=== PATIENT | male | born 1955 | race Caucasian/White ===

== ENCOUNTER 2019-11-25 16:33 | Inpatient (IN) | payer MEDICARE ==
[~2019-11-25] VITALS: Ht 177.8 cm; Wt 92.3 kg
[2019-11-25 17:54] LABS: MEAN CORPUSCULAR HEMOGLOBIN 30.8 pg (27.5-34.5); MEAN CORPUSCULAR HGB CONC 32.2 g/dL (33.2-36.2); MEAN CORPUSCULAR VOLUME 95.7 fL (81-97); MEAN PLATELET VOLUME 9.2 fL (7.4-10.4); PLATELET COUNT 261 x10^3/uL (130-400); RED BLOOD COUNT 5.15 x10^6/uL (4.38-5.82); RED CELL DISTRIBUTION WIDTH 14.9 % (9.4-14.8)
[2019-11-25] MEDS ORDERED: CEFTRIAXONE PMX 1GM/50ML 50 ML ONE (17:54)
[2019-11-25] MEDS ORDERED: CEFTRIAXONE PMX 1GM/50ML 50 ML IVPB ONE (18:00)
[2019-11-25 18:03] LABS: ALANINE AMINOTRANSFERASE 43 U/L (12-78); CALCIUM 9.1 mg/dL (8.5-10.1); CHLORIDE 100 mmol/L (98-107); CREATININE 1.09 mg/dL (0.7-1.3)
[2019-11-25 18:08] LABS: ALKALINE PHOSPHATASE 132 U/L (45-117); BILIRUBIN,TOTAL 0.7 mg/dL (0.2-1.0)
[2019-11-25 18:15] LABS: BASOPHILS # (AUTO) 0.06 x10^3/uL (0-0.1); BASOPHILS % (AUTO) 0 % (0-1); EOSINOPHILS # (AUTO) 0.04 x10^3/uL (0-0.4); EOSINOPHILS % (AUTO) 0 % (1-7); LYMPHOCYTES # (AUTO) 1.93 x10^3/uL (1-3.4); LYMPHOCYTES % (AUTO) 12 % (22-44); MD SCAN; MONOCYTES # (AUTO) 1.13 x10^3/uL (0.2-0.8); MONOCYTES % (AUTO) 7 % (2-9); NEUTROPHILS # (AUTO) 13.48 x10^3/uL (1.8-6.8); NEUTROPHILS % (AUTO) 81 % (42-75)
[2019-11-25 18:19] LABS: ANION GAP 2 mmol/L (5-15)
--- NOTE | 2019-11-25 18:28 | NUR ---
BLOOD CX DRAWN- ABX INITIATED.
[2019-11-25] MEDS ORDERED: SODIUM CHLORIDE 0.9% 1,000ML IVBOLUS ONE (18:30)
--- NOTE | 2019-11-25 18:45 | NUR ---
HOLD IVF, IV ABX OK PER DR POLLARD.
--- NOTE | 2019-11-25 18:56 | NUR ---
REPORT GIVEN TO GWEN
--- NOTE | 2019-11-25 18:57 | NUR ---
report of pt from justin gunter and assuming care of pt at this time.
[2019-11-25] MEDS ORDERED: AZITHROMYCIN 500 MG in SODIUM CHLORIDE 0.9% 250 ML IVPB ONE (19:00)
[2019-11-25] MEDS ORDERED: SODIUM CHLORIDE FLUSH 10ML SYR IVF ONE (19:00)
--- NOTE | 2019-11-25 20:10 | NUR ---
XRAY AT AT THIS TIME.
--- NOTE | 2019-11-25 20:26 | NUR ---
PT BACK FROM CT AT THIS TIME. PT CONTINUES TO REMOVE MEDICAL EQUIPMENT AND REEDUCATED ON NEED TO MONITOR VS AT THIS TIME. PT STATES HE WILL BE COOPERATIVE GOING FORWARD.
[2019-11-25] MEDS ORDERED: OMNIPAQUE 350 MG/ML, 100ML BOTTLE ONE (20:28)
[2019-11-25] MEDS ORDERED: SODIUM CHLORIDE FLUSH 10ML SYR IVF PRN (20:30)
[2019-11-25] MEDS ORDERED: NITROGLYCERIN 0.4 MG BOTTLE (25 TABS) SL PRN (21:30)
[2019-11-25] MEDS ORDERED: ACETAMINOPHEN 325 MG TABLET PO PRN (21:30)
[2019-11-25] MEDS ORDERED: OXYcodone IR 5MG TABLET ONE (21:39)
[2019-11-25] MEDS ORDERED: NITROGLYCERIN SINGLE TAB 0.4 MG SL ONE (21:39)
[2019-11-25] MEDS: OXYcodone IR 5MG TABLET PO PRN (21:44)
--- NOTE | 2019-11-25 21:57 | NUR ---
PT MEDICATED PER MAR FOR PAIN. REPORT OF PT TO FELICIA BROWN AT THIS TIME. ALL QUESTIONS ANSWERED.
[2019-11-25 22:55] LABS: CHOL/HDL RATIO 3.3; CHOLESTEROL, TOTAL 138 mg/dL (140-239); HDL CHOL % 30 % (26-37); HDL CHOLESTEROL (DIRECT) 42 mg/dL (40-60); LDL CHOLESTEROL,CALCULATED 75 mg/dL (54-169); LDL/HDL RATIO 1.8 (0.5-3.0); TRIGLYCERIDES 103 mg/dL (50-200); VLDL CHOLESTEROL 21 mg/dL (0-25)
[2019-11-25] MEDS ORDERED: HEPARIN 5,000 UNITS/ML, 1ML IV ONE (23:00)
[2019-11-25] MEDS: HEPARIN 25,000 UNITS/250ML PMX 250 ML IV PRN (23:05)
[2019-11-26] MEDS: LABETALOL 5MG/ML, 20ML IVPush PRN (00:40)
[2019-11-26] MEDS: OXYcodone IR 5MG TABLET PO PRN ×2 (04:35→13:05)
[2019-11-26] MEDS: ASPIRIN 81 MG TABLET EC PO SCH (05:38)
[2019-11-26 05:58] LABS: MEAN CORPUSCULAR HEMOGLOBIN 30.7 pg (27.5-34.5); MEAN CORPUSCULAR HGB CONC 31.9 g/dL (33.2-36.2); MEAN PLATELET VOLUME 9.4 fL (7.4-10.4); PLATELET COUNT 223 x10^3/uL (130-400); RED BLOOD COUNT 4.99 x10^6/uL (4.38-5.82)
[2019-11-26 06:08] LABS: CHLORIDE 103 mmol/L (98-107)
[2019-11-26] MEDS: HEPARIN 5,000 UNITS/ML, 1ML IV PRN ×3 (06:20→21:15)
[2019-11-26 06:21] LABS: ANION GAP 2 mmol/L (5-15); CALCIUM 8.4 mg/dL (8.5-10.1); CREATININE 1.04 mg/dL (0.7-1.3)
[2019-11-26 06:38] LABS: MD YES
[2019-11-26 06:39] LABS: BAND#(MANUAL) 0.17 x10^3/uL; BANDS%(MANUAL) 1 % (0-7); EOS#(MANUAL) 0.17 x10^3/uL (0.0-0.4); EOS% (MANUAL) 1 % (1-7); LYMPH#(MANUAL) 1.85 x10^3/uL (1-3.4); LYMPHS% (MANUAL) 11 % (22-44); MONOS#(MANUAL) 2.18 x10^3/uL (0.3-2.7); MONOS% (MANUAL) 13 % (2-9); SEG#(MANUAL) 12.43 x10^3/uL (1.8-6.8); SEGS% (MANUAL) 74 % (42-75)
[2019-11-26 06:40] LABS: <PLATELET ESTIMATE> ADEQUATE; <PLT MORPHOLOGY> NORMAL PLT MORPH; <RBC MORPHOLOGY> NORMAL
[2019-11-26] MEDS ORDERED: ALBUTEROL/IPRATROPIUM 2.5MG/0.5MG, 3 ML ONE (09:50)
[2019-11-26] MEDS: ALBUTEROL/IPRATROPIUM 2.5MG/0.5MG, 3 ML NPPB SCH ×3 (09:53→19:46)
[2019-11-26] MEDS: CEFTRIAXONE PMX 1GM/50ML 50 ML IV SCH (11:00)
[2019-11-26] MEDS: LISINOPRIL 10 MG TABLET PO SCH ×2 (11:00→21:17)
[2019-11-26] MEDS: AZITHROMYCIN 500 MG in SODIUM CHLORIDE 0.9% 250 ML IV SCH (12:05)
[2019-11-26] MEDS: INSULIN LISPRO 100 UNITS/ML, PEN SQ-INSULIN SCH ×3 (12:36→21:24)
[2019-11-26] MEDS ORDERED: INSULIN GLARGINE 100 UNITS/ML, PEN SQ-INSULIN SCH (21:00)
[2019-11-26] MEDS: HEPARIN 25,000 UNITS/250ML PMX 250 ML IV PRN (21:16)
[2019-11-27 03:20] LABS: BASOPHILS # (AUTO) 0.18 x10^3/uL (0-0.1); BASOPHILS % (AUTO) 1 % (0-1); EOSINOPHILS # (AUTO) 0.13 x10^3/uL (0-0.4); EOSINOPHILS % (AUTO) 1 % (1-7); LYMPHOCYTES # (AUTO) 1.55 x10^3/uL (1-3.4); LYMPHOCYTES % (AUTO) 11 % (22-44); MD NO; MEAN CORPUSCULAR HEMOGLOBIN 30.6 pg (27.5-34.5); MEAN CORPUSCULAR HGB CONC 31.7 g/dL (33.2-36.2); MEAN CORPUSCULAR VOLUME 96.5 fL (81-97); MEAN PLATELET VOLUME 9.4 fL (7.4-10.4); MONOCYTES # (AUTO) 1.29 x10^3/uL (0.2-0.8); MONOCYTES % (AUTO) 9 % (2-9); NEUTROPHILS # (AUTO) 11.27 x10^3/uL (1.8-6.8); NEUTROPHILS % (AUTO) 78 % (42-75); PLATELET COUNT 223 x10^3/uL (130-400); RED BLOOD COUNT 4.68 x10^6/uL (4.38-5.82)
[2019-11-27 03:29] LABS: ANION GAP 1 mmol/L (5-15); CALCIUM 8.4 mg/dL (8.5-10.1); CHLORIDE 104 mmol/L (98-107); CREATININE 0.96 mg/dL (0.7-1.3)
[2019-11-27] MEDS: HEPARIN 5,000 UNITS/ML, 1ML IV PRN (05:11)
[2019-11-27] MEDS: INSULIN LISPRO 100 UNITS/ML, PEN SQ-INSULIN SCH ×4 (06:06→20:31)
[2019-11-27] MEDS: ASPIRIN 81 MG TABLET EC PO SCH (06:06)
[2019-11-27] MEDS: ALBUTEROL/IPRATROPIUM 2.5MG/0.5MG, 3 ML NPPB SCH ×4 (07:37→20:00)
[2019-11-27] MEDS ORDERED: LISINOPRIL 10 MG TABLET PO SCH (09:00)
[2019-11-27] MEDS: ENOXAPARIN 100 MG/ML SQ SCH ×2 (11:01→20:32)
[2019-11-27] MEDS: CEFTRIAXONE PMX 1GM/50ML 50 ML IV SCH (12:58)
[2019-11-27] MEDS: AZITHROMYCIN 500 MG in SODIUM CHLORIDE 0.9% 250 ML IV SCH (13:04)
[2019-11-27] MEDS: INSULIN GLARGINE 100 UNITS/ML, PEN SQ-INSULIN SCH (20:32)
[2019-11-27] MEDS: QUETIAPINE 25MG TABLET PO SCH (20:37)
[2019-11-27 21:08] LABS: CALCIUM 8.5 mg/dL (8.5-10.1); CREATININE 1.26 mg/dL (0.7-1.3)
[2019-11-27 21:17] LABS: ANION GAP 1 mmol/L (5-15); CHLORIDE 99 mmol/L (98-107)
[2019-11-27] MEDS ORDERED: TRAZODONE 100MG TABLET PO ONE (22:00)
[2019-11-28 04:29] LABS: ANION GAP 2 mmol/L (5-15); CALCIUM 8.3 mg/dL (8.5-10.1); CHLORIDE 102 mmol/L (98-107); CREATININE 1.12 mg/dL (0.7-1.3)
[2019-11-28 04:44] LABS: BASOPHILS # (AUTO) 0.13 x10^3/uL (0-0.1); BASOPHILS % (AUTO) 1 % (0-1); EOSINOPHILS # (AUTO) 0.07 x10^3/uL (0-0.4); EOSINOPHILS % (AUTO) 1 % (1-7); LYMPHOCYTES # (AUTO) 1.32 x10^3/uL (1-3.4); LYMPHOCYTES % (AUTO) 10 % (22-44); MD NO; MEAN CORPUSCULAR HEMOGLOBIN 30.7 pg (27.5-34.5); MEAN CORPUSCULAR HGB CONC 31.5 g/dL (33.2-36.2); MEAN CORPUSCULAR VOLUME 97.2 fL (81-97); MEAN PLATELET VOLUME 9.8 fL (7.4-10.4); MONOCYTES # (AUTO) 0.91 x10^3/uL (0.2-0.8); MONOCYTES % (AUTO) 7 % (2-9); NEUTROPHILS # (AUTO) 10.94 x10^3/uL (1.8-6.8); NEUTROPHILS % (AUTO) 82 % (42-75); PLATELET COUNT 283 x10^3/uL (130-400); RED BLOOD COUNT 4.64 x10^6/uL (4.38-5.82); RED CELL DISTRIBUTION WIDTH 14.8 % (9.4-14.8)
[2019-11-28] MEDS: ASPIRIN 81 MG TABLET EC PO SCH (06:13)
[2019-11-28] MEDS: INSULIN LISPRO 100 UNITS/ML, PEN SQ-INSULIN SCH ×4 (06:18→20:41)
[2019-11-28] MEDS: ENOXAPARIN 100 MG/ML SQ SCH ×2 (08:00→20:09)
[2019-11-28] MEDS: QUETIAPINE 25MG TABLET PO SCH (08:04)
[2019-11-28] MEDS: CEFTRIAXONE PMX 1GM/50ML 50 ML IV SCH (12:13)
[2019-11-28] MEDS: AZITHROMYCIN 500 MG in SODIUM CHLORIDE 0.9% 250 ML IV SCH (12:13)
[2019-11-28] MEDS ORDERED: ALBUTEROL/IPRATROPIUM 2.5MG/0.5MG, 3 ML NPPB PRN (15:30)
[2019-11-28 15:46] VITALS: BP 112/43
[2019-11-28] MEDS: OXYcodone IR 5MG TABLET PO PRN (16:18)
[2019-11-28 20:05] VITALS: BP 123/77
[2019-11-28] MEDS: INSULIN GLARGINE 100 UNITS/ML, PEN SQ-INSULIN SCH (20:41)
[2019-11-29 00:56] VITALS: BP 133/81
[2019-11-29] MEDS: ASPIRIN 81 MG TABLET EC PO SCH (06:12)
[2019-11-29 08:02] VITALS: BP 137/87
[2019-11-29] MEDS: INSULIN LISPRO 100 UNITS/ML, PEN SQ-INSULIN SCH ×4 (08:18→20:36)
[2019-11-29] MEDS: ENOXAPARIN 100 MG/ML SQ SCH (08:18)
[2019-11-29 09:38] LABS: CALCIUM 8.5 mg/dL (8.5-10.1); CHLORIDE 101 mmol/L (98-107); CREATININE 0.98 mg/dL (0.7-1.3)
[2019-11-29 09:47] LABS: ANION GAP 1 mmol/L (5-15)
[2019-11-29] MEDS ORDERED: SODIUM CHLORIDE 0.9% 1,000 ML IV SCH (11:00)
[2019-11-29] MEDS ORDERED: ACETAMINOPHEN 325 MG TABLET PO PRN (11:00)
[2019-11-29 12:34] LABS: O2 FLOW 15 L/min
[2019-11-29] MEDS ORDERED: OXYcodone IR 5MG TABLET PO PRN (13:30)
[2019-11-29] MEDS ORDERED: FUROSEMIDE 40 MG/4 ML IV ONE (14:30)
[2019-11-29] MEDS: INSULIN GLARGINE 100 UNITS/ML, PEN SQ-INSULIN SCH (20:37)
[2019-11-29] MEDS: APIXABAN 5 MG TABLET PO SCH (20:37)
[2019-11-30] MEDS: ASPIRIN 81 MG TABLET EC PO SCH (05:53)
[2019-11-30] MEDS: INSULIN LISPRO 100 UNITS/ML, PEN SQ-INSULIN SCH ×4 (07:00→19:59)
[2019-11-30] MEDS: APIXABAN 5 MG TABLET PO SCH ×2 (07:29→19:58)
[2019-11-30 13:17] VITALS: BP 125/81
[2019-11-30 13:41] VITALS: BP 121/62
[2019-11-30 18:52] VITALS: BP 114/74
[2019-11-30] MEDS: INSULIN GLARGINE 100 UNITS/ML, PEN SQ-INSULIN SCH (19:58)
[2019-12-01 01:27] VITALS: BP 149/79
[2019-12-01] MEDS: ASPIRIN 81 MG TABLET EC PO SCH (05:20)
[2019-12-01 06:12] LABS: BASOPHILS # (AUTO) 0.12 x10^3/uL (0-0.1); BASOPHILS % (AUTO) 1 % (0-1); CALCIUM 8.5 mg/dL (8.5-10.1); EOSINOPHILS # (AUTO) 0.46 x10^3/uL (0-0.4); EOSINOPHILS % (AUTO) 5 % (1-7); LYMPHOCYTES # (AUTO) 2.17 x10^3/uL (1-3.4); LYMPHOCYTES % (AUTO) 22 % (22-44); MD NO; MEAN CORPUSCULAR HEMOGLOBIN 31.1 pg (27.5-34.5); MEAN CORPUSCULAR HGB CONC 32.4 g/dL (33.2-36.2); MEAN PLATELET VOLUME 9.1 fL (7.4-10.4); MONOCYTES # (AUTO) 1.13 x10^3/uL (0.2-0.8); MONOCYTES % (AUTO) 11 % (2-9); NEUTROPHILS # (AUTO) 6.06 x10^3/uL (1.8-6.8); NEUTROPHILS % (AUTO) 61 % (42-75); PLATELET COUNT 277 x10^3/uL (130-400); RED BLOOD COUNT 4.68 x10^6/uL (4.38-5.82); RED CELL DISTRIBUTION WIDTH 15.1 % (9.4-14.8)
[2019-12-01 06:13] LABS: CREATININE 1.07 mg/dL (0.7-1.3)
[2019-12-01 06:21] LABS: CHLORIDE 98 mmol/L (98-107)
[2019-12-01 06:22] LABS: ANION GAP 2 mmol/L (5-15)
[2019-12-01] MEDS: INSULIN LISPRO 100 UNITS/ML, PEN SQ-INSULIN SCH ×4 (07:26→20:32)
[2019-12-01 08:09] VITALS: BP 125/76
[2019-12-01] MEDS: APIXABAN 5 MG TABLET PO SCH ×2 (08:31→20:32)
[2019-12-01 15:27] VITALS: BP 147/82
[2019-12-01] MEDS ORDERED: ALBUTEROL SULFATE 2.5 MG/3 ML ONE (15:43)
[2019-12-01 20:27] VITALS: BP 117/60
[2019-12-01] MEDS: INSULIN GLARGINE 100 UNITS/ML, PEN SQ-INSULIN SCH (20:33)
[2019-12-02 01:14] VITALS: BP 143/67
[2019-12-02 08:45] VITALS: BP 133/72
[2019-12-02] MEDS: ASPIRIN 81 MG TABLET EC PO SCH (09:21)
[2019-12-02] MEDS: APIXABAN 5 MG TABLET PO SCH ×2 (09:21→20:43)
[2019-12-02] MEDS: INSULIN LISPRO 100 UNITS/ML, PEN SQ-INSULIN SCH ×4 (09:21→20:30)
[2019-12-02] MEDS: metFORMIN 850 MG TABLET PO SCH ×2 (09:22→16:14)
[2019-12-02 13:53] VITALS: BP 173/106
[2019-12-02] MEDS: LABETALOL 5MG/ML, 20ML IVPush PRN (14:00)
[2019-12-02 16:26] VITALS: BP 134/86
[2019-12-02 19:51] VITALS: BP 154/80
[2019-12-02] MEDS: LISINOPRIL 10 MG TABLET PO SCH (20:42)
[2019-12-02] MEDS: INSULIN GLARGINE 100 UNITS/ML, PEN SQ-INSULIN SCH (20:43)
[2019-12-03 00:35] VITALS: BP 126/79
[2019-12-03 01:33] VITALS: BP 132/70
[2019-12-03] MEDS: ASPIRIN 81 MG TABLET EC PO SCH (05:04)
[2019-12-03] MEDS: INSULIN LISPRO 100 UNITS/ML, PEN SQ-INSULIN SCH ×4 (07:16→20:12)
[2019-12-03] MEDS: metFORMIN 850 MG TABLET PO SCH ×3 (07:50→16:42)
[2019-12-03] MEDS: APIXABAN 5 MG TABLET PO SCH ×2 (07:51→20:09)
[2019-12-03] MEDS: LISINOPRIL 10 MG TABLET PO SCH ×2 (07:51→20:09)
[2019-12-03 08:00] VITALS: BP 143/81
[2019-12-03 08:23] LABS: CALCIUM 8.7 mg/dL (8.5-10.1); CREATININE 0.89 mg/dL (0.7-1.3)
[2019-12-03 08:33] LABS: ANION GAP 3 mmol/L (5-15); CHLORIDE 101 mmol/L (98-107)
[2019-12-03 12:52] VITALS: BP 160/93
[2019-12-03] MEDS: INSULIN GLARGINE 100 UNITS/ML, PEN SQ-INSULIN SCH (20:11)
[2019-12-03 20:13] VITALS: BP 155/84
[2019-12-04 00:54] VITALS: BP 113/71
[2019-12-04] MEDS: ASPIRIN 81 MG TABLET EC PO SCH (05:48)
[2019-12-04 06:36] LABS: BASOPHILS # (AUTO) 0.06 x10^3/uL (0-0.1); BASOPHILS % (AUTO) 1 % (0-1); EOSINOPHILS # (AUTO) 0.39 x10^3/uL (0-0.4); EOSINOPHILS % (AUTO) 4 % (1-7); LYMPHOCYTES # (AUTO) 2.32 x10^3/uL (1-3.4); LYMPHOCYTES % (AUTO) 25 % (22-44); MD NO; MEAN CORPUSCULAR HEMOGLOBIN 30.9 pg (27.5-34.5); MEAN CORPUSCULAR HGB CONC 32.2 g/dL (33.2-36.2); MEAN CORPUSCULAR VOLUME 95.8 fL (81-97); MEAN PLATELET VOLUME 9.5 fL (7.4-10.4); MONOCYTES # (AUTO) 0.96 x10^3/uL (0.2-0.8); MONOCYTES % (AUTO) 10 % (2-9); NEUTROPHILS # (AUTO) 5.55 x10^3/uL (1.8-6.8); NEUTROPHILS % (AUTO) 60 % (42-75); PLATELET COUNT 296 x10^3/uL (130-400); RED BLOOD COUNT 4.84 x10^6/uL (4.38-5.82); RED CELL DISTRIBUTION WIDTH 14.4 % (9.4-14.8)
[2019-12-04 06:44] LABS: ANION GAP 4 mmol/L (5-15); CALCIUM 8.7 mg/dL (8.5-10.1); CHLORIDE 103 mmol/L (98-107); CREATININE 0.91 mg/dL (0.7-1.3)
[2019-12-04] MEDS: metFORMIN 850 MG TABLET PO SCH (07:23)
[2019-12-04] MEDS: LISINOPRIL 10 MG TABLET PO SCH (07:45)
[2019-12-04] MEDS: APIXABAN 5 MG TABLET PO SCH (07:45)
[2019-12-04] MEDS: INSULIN LISPRO 100 UNITS/ML, PEN SQ-INSULIN SCH ×2 (07:46→11:49)
[2019-12-04 08:10] VITALS: BP 134/72
[2019-12-04] MEDS ORDERED: GLIP5TAB10 PO (11:57)
[2019-12-04] MEDS ORDERED: METF850T PO (11:57)
[2019-12-04] MEDS ORDERED: INSU100I13 SQ-INSULIN (11:57)
[2019-12-04] MEDS ORDERED: ASPI81TA45 PO (11:57)
[2019-12-04] MEDS ORDERED: LISI-167 PO (11:57)
[2019-12-04] MEDS ORDERED: APIX5TAB PO (11:57)
[2019-12-04 12:53] VITALS: BP 169/98
== END 2019-12-04 16:35 | disposition home or self-care (01) | DRG 175 ==
LOC: ED 19:55 → EDIP 20:05 → ED 20:20 → ICU 22:15 → 5SO 11-28 14:52 → CCU 11-29 14:04 → 4WST 11-30 13:05 → 4EST 12-02 08:24
PROVIDERS: ADMIT Family Medicine; ATTEND Hospitalist
PROC: 5A09357 Assistance with Respiratory Ventilation, Less than 24 Consecutive Hours, Continuous Positive Airway Pressure (ICD-10-PCS; principal; 2019-11-27)
PROC: 5A09357 Assistance with Respiratory Ventilation, Less than 24 Consecutive Hours, Continuous Positive Airway Pressure (ICD-10-PCS; 2019-11-28)
PROC: 5A09357 Assistance with Respiratory Ventilation, Less than 24 Consecutive Hours, Continuous Positive Airway Pressure (ICD-10-PCS; 2019-11-29)
PROC: 5A09457 Assistance with Respiratory Ventilation, 24-96 Consecutive Hours, Continuous Positive Airway Pressure (ICD-10-PCS; 2019-11-30)
DX: I26.99 Other pulmonary embolism without acute cor pulmonale (principal); I21.A1 Myocardial infarction type 2; J15.9 Unspecified bacterial pneumonia; I50.41 Acute combined systolic (congestive) and diastolic (congestive) heart failure; J96.21 Acute and chronic respiratory failure with hypoxia; J96.22 Acute and chronic respiratory failure with hypercapnia; I13.0 Hypertensive heart and chronic kidney disease with heart failure and stage 1 through stage 4 chronic kidney disease, or unspecified chronic kidney disease; E66.2 Morbid (severe) obesity with alveolar hypoventilation; E87.4 Mixed disorder of acid-base balance; J44.0 Chronic obstructive pulmonary disease with (acute) lower respiratory infection; E11.22 Type 2 diabetes mellitus with diabetic chronic kidney disease; E11.65 Type 2 diabetes mellitus with hyperglycemia; E78.5 Hyperlipidemia, unspecified; F31.9 Bipolar disorder, unspecified; G47.33 Obstructive sleep apnea (adult) (pediatric); N18.9 Chronic kidney disease, unspecified; T38.0X5A Adverse effect of glucocorticoids and synthetic analogues, initial encounter; Z72.0 Tobacco use; Z71.6 Tobacco abuse counseling; Z82.3 Family history of stroke; Z91.14 Patient's other noncompliance with medication regimen; Z88.2 Allergy status to sulfonamides; Z68.29 Body mass index [BMI] 29.0-29.9, adult
CPT/HCPCS: 36415; 36600; 71045; 71275; 80048; 80053; 80061; 82803; 82962; 83036; 83605; 83735; 83880; 84100; 84484; 85025; 85520; 87040; 87081; 93005; 93306; 93970; 94060; 94640; 94660; 96365; 96367; G0378; J0456; J0696; J1644; J1650; J1940; Q9967; J1815; J7030; J7050; J7512

== ENCOUNTER 2020-03-09 13:43 | Emergency (ER) | payer MEDICARE ==
[~2020-03-09] VITALS: Ht 177.8 cm; Wt 104.0 kg
[~2020-03-09 13:43] MED LIST: APIX5TAB PO; ASPI81TA45 PO; GLIP5TAB10 PO; INSU100I13 SQ-INSULIN; LISI-167 PO; METF850T PO
--- NOTE | 2020-03-09 13:58 | NUR ---
CONTACT WITH PT, 64 YR OLD MALE HERE WITH C/O SOB, LOW OXYGEN SATS. THIS ALL STARTED 3 MO AGO WHEN I WAS HERE. I HAD A CLOT IN MY LUNG. I WENT HOME WITH MY DAUGHTER IN [facility]. I WAS FEELING BETTER AND THEN I WENT TO [facility], I ISOLATED MYSELF [employer]. I STARTED NOT FEELING GOOD AND I WENT BACK TO [facility]. I STILL WASNT GETTING BETTER. SO I MADE IT TO [facility], BECAUSE MY INSURANCE ISNT ANY GOOD IN [place]. I CALLED A [employer]ISET[employer] AND MADE IT TO [place]. I CALLED MY INSURANCE PROVIDER AND WAS TOLD THERE WAS NO ONE IN [place]. [facility] WAS THE CLOSEST ONE. MY OXYGEN WAS GETTING LOWER AND LOWER. I WAS SEEN AT THE HOSPITAL IN [place]. PT ARRIVED VIA EMS, PER REPORT PT WAS FOUND TO HAVE OXYGEN SATS IN 70'S. CONCENTRATOR WAS OFF. PT WAS PLACED ON 6L BY FIRE DEPARTMENT, UPON EMS ARRIVAL PT WAS PLACED ON 2L NC. PT SATS 95%. PER PT WAS TESTED FOR COVID 19 WHILE IN [place]. WAS SEEN BY [facility] AND PRESCRIBED SOME MEDICATIONS. PT SPEAKING IN COMPLETE SENTENCES. BP ELEVALTED.
--- NOTE | 2020-03-09 14:27 | NUR ---
PT STATES "HAVE BEEN OUT OF BP MEDS FOR A FEW DAYS" REPORT TO BETH DUARTE
[2020-03-09] MEDS ORDERED: LISINOPRIL 10 MG TABLET PO ONE (15:00)
[2020-03-09 15:02] VITALS: BP 165/94
[2020-03-09] MEDS ORDERED: LISINOPRIL 10 MG TABLET ONE (15:04)
--- NOTE | 2020-03-09 15:59 | NUR ---
Patient given discharge instructions and Rx, they have confirmed that they understand the instructions. Patient ambulatory with steady gait.
== END 2020-03-09 17:18 | disposition home or self-care (01) ==
LOC: ED 14:12
DX: J15.9 Unspecified bacterial pneumonia (principal); R05 Cough; R06.02 Shortness of breath; J44.9 Chronic obstructive pulmonary disease, unspecified; I50.9 Heart failure, unspecified; I10 Essential (primary) hypertension; F17.200 Nicotine dependence, unspecified, uncomplicated
CPT/HCPCS: 71045; 99283